=== PATIENT | male | born 1930 | race Caucasian/White ===

== ENCOUNTER 2016-09-22 12:36 | Day surgery (SDC) | payer MEDICARE, BC ==
[~2016-09-22] VITALS: Ht 168.9 cm; Wt 76.2 kg
[~2016-09-22 12:36] MED LIST: CLEOCIN HC150 MG/CAP PO; COLACE 100100 MG/CAP PO; CRESTOR40 MG PO; DULCOLAX S10 MG/SUPP RC; FEROSUL325 MG PO; FLUORIDE; IMDUR 60MG60 MG/TAB PO; ISMO 20MG20 MG PO; KLOR-CON M2020 MEQ PO; LASIX 20MG TABL20 MG PO; LOPRESSOR100 MG PO; MIRALAX119G PO; MULTIPLE VITAMI1 CAP PO; NITROSTAT0.4 MG/TAB SL; NORVASC 10MG10 MG PO; PERIDEX (CHLOR480 ML MM; PRILOSEC 20MG20 MG PO; REFRESH PLUS 00.4 M1 OU; TYLENOL EXTRA500 M1 PO; TYLENOL W/COD1 UDTAB PO; XALATAN EYE DROPS OU; XARELTO15 MG PO; ZYLOPRIM 100MG100 MG PO; [UNRECOGNIZED DRUG - OTHER]; [UNRECOGNIZED DRUG - OTHER]
[2016-09-22] MEDS ORDERED: NORCO 325 MG-7.1 TAB PO (13:08)
[2016-09-22] MEDS ORDERED: AMOXICILLIN 50500 MG PO (13:08)
[2016-09-22 13:26] VITALS: BP 113/67; PULSE 82; TEMP 97.9
[2016-09-22 15:00] VITALS: BP 113/67; PULSE 66; TEMP 98
[2016-09-22 15:15] VITALS: BP 95/55; PULSE 60
[2016-09-22 15:30] VITALS: BP 105/61; PULSE 62
[2016-09-22 15:45] VITALS: BP 98/58; PULSE 71
[2016-09-22 16:00] VITALS: BP 94/53; PULSE 62
== END 2016-09-22 16:40 | disposition home or self-care (01) ==
LOC: SDCO 12:36
DX: D50.0 Iron deficiency anemia secondary to blood loss (chronic) (principal); R19.5 Other fecal abnormalities; K31.819 Angiodysplasia of stomach and duodenum without bleeding; Z95.5 Presence of coronary angioplasty implant and graft; K21.9 Gastro-esophageal reflux disease without esophagitis; K44.9 Diaphragmatic hernia without obstruction or gangrene; E78.00 Pure hypercholesterolemia, unspecified; I10 Essential (primary) hypertension
CPT/HCPCS: J2250; J3010; J7030